=== PATIENT | female | born 1990 | race Caucasian/White ===

== ENCOUNTER 2017-06-01 15:12 | Emergency (ER) | payer OTHER ==
--- NOTE | 2017-06-01 17:38 | EDM.PDOC ---
Scribed by Sana Granado 06/01/17 5731 for Eitan Delatorre MD ED HPI GENERAL MEDICAL PROBLEM - General Chief Complaint: Laceration Stated Complaint: [id number] CUT ON ARM Time Seen by Provider: 06/01/17 16:55 Source of Information: Reports: Patient, RN, RN Notes Reviewed History Limitations: Reports: No Limitations - History of Present Illness INITIAL COMMENTS - FREE TEXT/NARRATIVE: Cut left forearm on hay mower blade. Denies any other injury. Last tetanus vaccine 2 years ago. Onset: Today Location: Reports: Upper Extremity, Left Quality: Reports: Ache Severity: Mild Improves with: Reports: None Worsens with: Reports: None Associated Symptoms: Reports: No Other Symptoms Left Arm Pain Score (Numeric/FACES): 4 - Related Data Allergies Allergy/AdvReac Type Severity Reaction Status Date / Time metronidazole [From Flagyl] Allergy Cannot Verified 06/01/17 17:09 Remember Past Medical History Endocrine/Metabolic History: Reports: Other (See Below) Other Endocrine/Metabolic History: ITP Hematologic History: Reports: Other (See Below) Other Hematologic History: ITP - Past Surgical History GI Surgical History: Reports: Appendectomy, Cholecystectomy Dermatological Surgical History: Reports: Other (See Below) Social & Family History - Family History Family Medical History: Noncontributory - Tobacco Use Smoking Status *Q: Never Smoker Second Hand Smoke Exposure: No - Caffeine Use Caffeine Use: Reports: None - Recreational Drug Use Recreational Drug Use: No ED ROS GENERAL - Review of Systems Review Of Systems: ROS reveals no pertinent complaints other than HPI. ED EXAM, SKIN/RASH Exam: See Below Exam Limited By: No Limitations General Appearance: Alert, WD/WN, No Apparent Distress Respiratory/Chest: No Respiratory Distress Back Exam: Normal Inspection Extremities: Normal Inspection, Normal Range of Motion, Non-Tender, No Pedal Edema, Normal Capillary Refill Neurological: Alert, Oriented, CN II-XII Intact, Normal Cognition, Normal Gait, Normal Reflexes, No Motor/Sensory Deficits Psychiatric: Normal Affect, Normal Mood Skin: Other (4cm vertical linear superficial laceration to left dorsal forearm. ) Course - Vital Signs Last Recorded V/S: Last Vital Signs Temp 37.6 C 06/01/17 15:52 Pulse 104 H 06/01/17 15:52 Resp 18 06/01/17 15:52 BP 103/76 06/01/17 15:52 Pulse Ox 100 06/01/17 15:52 - Re-Assessments/Exams Free Text/Narrative Re-Assessment/Exam: 06/01/17 17:30 Laceration cleaned, Steri-Strips and Dermabond repaired by RN. Departure - Departure Time of Disposition: 17:05 Disposition: Home, Self-Care 01 Condition: Good Clinical Impression: Laceration of left forearm - Discharge Information Instructions: Stitches, Alfred, or Adhesive Wound Closure, [id number] Referrals: PCP,None [Primary Care Provider] - Forms: ED Department Discharge Additional Instructions: Follow up in clinic if any signs of infection develop or any further problems. I have read and agree with the documentation that has been completed regarding this visit. By signing this record, I attest that the documentation was completed in my physical presence and is an accurate record of the encounter.
== END 2017-06-01 17:12 | disposition home or self-care (01) ==
LOC: DL.ED 15:12
CPT/HCPCS: 12002; 99283

== ENCOUNTER 2019-01-16 00:01 | Inpatient (IN) | payer BC ==
[~2019-01-16 00:01] MED LIST: Acetaminophen 325 MG Tab PO PRN; Carboprost Tromethamine 250 MCG/1 ML Amp IM PRN; Lactated Ringers 500 ML IV ONE; Lidocaine 1% 30 ML SDV INJECT PRN; Methylergonovine 0.2 MG/1 ML Amp IM PRN; Misoprostol 400 MCG (4 X 100 MCG TAB) RECTAL PRN; Oxytocin/Normal Saline 30 UNIT/500 ML BAG IV SCH; Sodium Chloride 0.9% 10 ML Syringe FLUSH PRN; Tranexamic Acid 1,000 MG in Sodium Chloride 0.9% 100 ML IV PRN; Zolpidem 5 MG Tab PO PRN; fentaNYL 100 MCG/2 ML SDV IVPUSH PRN
[2019-01-16] MEDS: Misoprostol 25 MCG (1/4 of 100 MCG) Tab VAG PRN ×3 (00:48→09:04)
[2019-01-16] MEDS: Lactated Ringers 1,000 ML IV SCH ×2 (12:50→16:07)
[2019-01-16] MEDS: Ondansetron 4 MG/2 ML SDV IV PRN ×2 (12:55→15:58)
[2019-01-16] MEDS ORDERED: Nalbuphine 10 MG/1 ML Vial IM ONE (14:30)
--- NOTE | 2019-01-16 15:44 | PN ---
DATE: 01/16/2019 TIME: Just about 1510 hours. SUBJECTIVE: The patient having a lot more pain with her labor and requesting intrathecal. She has been given 1 dose of fentanyl 100 mcg and reports that it really did nothing for her pain. Nurse then called at 1410 hours and received an order for a dose of 20 of IM Nubain. The patient reports that has helped some but still not sufficient to allow her to labor without requesting more for pain medications. She has been breathing a little bit heavier, so nurses also provided her with a mask to help focus on more controlled breathing, and oxygen is not currently running in that mask. The patient's mother is concerned about a decrease in baseline heart rate to the 120s from the previous 150s and no ominous findings. OBJECTIVE: Vital Signs: Remains afebrile and she is afebrile. Pelvic: Cervix is now 4 cm dilated, 90% effaced, mid position, and maybe -2 station; and the baby's head has come down significantly from where it was before. Baseline heart rate 120 beats per minute. Moderate [id number]-zo-[id number] variability, currently without accelerations. The Lithium is showing contractions every 2 to 4 minutes, somewhat irregular. The patient is breathing through them. ASSESSMENT: Diagnosis unchanged from previous. PLAN: Encouraging the patient to do her best to relax as much as she can, waiting between contractions to allow her cervix to dilate. Hopefully, she will get to 5 cm dilated soon, and we can proceed with an intrathecal for pain control. Also, discussed with the patient the intrathecal too close to timing of administration of Nubain could make the intrathecal less effective, and she has previously been educated as well that the intrathecal is best if only administered once and a repeat dosing is not necessary. As soon as nurse plans on trying to get positions, changes implemented as well for increased comfort. The patient has been having a lot of back labor, and we are concerned that the baby is currently sitting OP; and hopefully, with position change, baby will also be able to rotate and come down into the canal better. Questions have been answered. [facility] /[id number]
--- NOTE | 2019-01-16 15:51 | PN ---
DATE: 01/16/2019 TIME OF FIRST VISIT: Around 12:40 today. SUBJECTIVE: The patient reports feeling her contractions more. She was in the bathtub just minutes ago and was breathing through them, noticed more passage of mucus plug. No spontaneous leakage of fluid. No vaginal bleeding. movement has been good. OBJECTIVE: Vital Signs: Reviewed. Temperature is 98.4, last blood pressure 110/71, and pulse of 81. Pelvic: heart tones tracing at 150 beats per minute at baseline. Moderate vmkn-lu-guuh variability. Accelerations previously noted. [place] shows contractions every 2 to 3 minutes. Cervix checked and 3 cm dilated, 80% effaced, -3 station, mid position. Discussed with patient the option of artificial rupture of membranes or initiation of Pitocin for further progression of labor. She was agreeable to rupture which was carried out with amniotomy, and return of clear fluid noted at that time. ASSESSMENT: 1. A 39 and 6/7 weeks' intrauterine , 1, para 0. 2. Blood type A positive, rubella nonimmune, group B streptococcus negative. 3. Anemia of . 4. Hemorrhoids. 5. History of idiopathic thrombocytopenic purpura. 6. Inducing labor for concern of macrosomia. PLAN: Continue active labor management. Anticipate starting pitocin. Intrathecal when able. [facility] /[id number] MTDD
[2019-01-16] MEDS ORDERED: fentaNYL 100 MCG/2 ML SDV ONE (16:14)
[2019-01-16] MEDS ORDERED: EPINEPHrine 1 MG/ML SDV ONE (16:14)
[2019-01-16] MEDS ORDERED: Sodium Chloride 0.9% 10 ML Syringe FLUSH PRN (18:04)
[2019-01-16] MEDS ORDERED: Oxytocin 10 Units/1 ML SDV IM PRN (18:04)
[2019-01-16] MEDS ORDERED: Misoprostol 400 MCG (4 X 100 MCG TAB) RECTAL PRN (18:04)
[2019-01-16] MEDS ORDERED: Simethicone 80 MG Tab.Chew PO PRN (18:04)
[2019-01-16] MEDS ORDERED: Carboprost Tromethamine 250 MCG/1 ML Amp IM PRN (18:04)
[2019-01-16] MEDS ORDERED: Tranexamic Acid 1,000 MG in Sodium Chloride 0.9% 100 ML IV PRN (18:04)
[2019-01-16] MEDS ORDERED: Acetaminophen 325 MG Tab PO PRN (18:04)
[2019-01-16] MEDS ORDERED: Benzocaine/Menthol 20%-0.5% Spray 56 GM Canister TOP PRN (18:04)
[2019-01-16] MEDS ORDERED: Ibuprofen 800 MG Tab PO PRN (18:04)
[2019-01-16] MEDS ORDERED: Zolpidem 5 MG Tab PO PRN (18:04)
[2019-01-16] MEDS: Docusate Sodium 100 MG Cap PO PRN (19:17)
[2019-01-17] MEDS ORDERED: Acetaminophen/HYDROcodone 325-5 MG Tab PO PRN (03:25)
[2019-01-17] MEDS: Acetaminophen 500 MG Tab PO PRN ×3 (03:59→16:51)
--- NOTE | 2019-01-17 04:37 | DEL ---
DATE: 01/16/2019 PREPROCEDURE DIAGNOSES: 1. A 36 and 6/7 weeks' intrauterine , 1, para 0. 2. Blood type A positive, rubella nonimmune, group B Streptococcus negative. 3. Anemia of . 4. Hemorrhoids. 5. History of idiopathic thrombocytopenia, approximately 16 years ago. 6. Concern for macrosomia as reason for induction. POSTPROCEDURE DIAGNOSES: 1. A 36 and 6/7 weeks' intrauterine , 1, para 0. 2. Blood type A positive, rubella nonimmune, group B Streptococcus negative. 3. Anemia of . 4. Hemorrhoids. 5. History of idiopathic thrombocytopenia, approximately 16 years ago. 6. Concern for macrosomia as reason for induction. 7. Delivery of viable male infant. 8. Status post spontaneous vaginal delivery. 9. Status post repair of bilateral vaginal sulcus lacerations and second- degree perineal repair. BRIEF HISTORY: A 28-year-old female with the above-listed diagnoses, was brought into the hospital at midnight for Cytotec induction, and once she reached 3 cm dilated and 80% effaced, artificial rupture of membranes was performed with return of clear fluid, and her pain had increased significantly. She was dosed with IV fentanyl and IM Nubain and Pitocin added for augmentation. It was only up to 2 when the patient rapidly transitioned from 3 cm to 7 and then complete prior to being able to receive her intrathecal for pain management. Details of delivery as below. DESCRIPTION OF PROCEDURE: With the patient in dorsal lithotomy position, she delivered a viable male in OA position over intact perineum. was dried, stimulated, bulb suctioned, and placed upon mother's abdomen. After a delay, 3-vessel umbilical cord was doubly clamped and then cut. Perineum then anesthetized and placenta delivered by gentle cord traction and concomitant uterine massage. Prior to the repair of the perineum, there were 2 vaginal sulcus lacerations that were repaired with a running stitch of 3-0 Vicryl in the usual fashion making sure to start above the apex of each laceration and bring that down to the level of the introitus. After that, the second-degree laceration was repaired in usual fashion with a running stitch of 3-0 Vicryl under local anesthetic of 1% lidocaine without epinephrine. The patient tolerated the entire procedure well. Active stage of labor was approximately 3.5 hours, but noting that she did go rapidly from 4 cm to complete in under 1.5 hours, pushed for approximately 40 minutes and placenta was probably about 7 minutes. COMPLICATIONS: None. FINDINGS: Viable male infant. Weight 3755g, 8#4oz. and 8 & 9. ESTIMATED BLOOD LOSS: 450 mL. DISPOSITION: Mother and baby to stay in the room at this time to initiate breast-feeding and continue skin to skin. [facility] /[id number] MTDD
[2019-01-17] MEDS: Prenatal Multivitamin with Calcium/Folic Acid/Iron Tab PO SCH (10:01)
[2019-01-17] MEDS: Docusate Sodium 100 MG Cap PO PRN ×2 (10:01→20:51)
[2019-01-17] MEDS: Ibuprofen 400 MG Tab PO PRN ×2 (12:14→18:42)
--- NOTE | 2019-01-17 13:19 | PN ---
DATE: 01/17/2019 SUBJECTIVE: The patient is day #1 from induction of labor with spontaneous vaginal delivery. She has a significant history of ITP with remission for 16 years, anemia of , hemorrhoids, A positive, rubella nonimmune, and GBS negative. She was induced at 39 weeks 6 days' gestation and was 1, para 0 status, now 1, para 1 status. The patient reports being very sore and tired overnight. She is having some continued cramping, made worse with . She reports minimal bleeding. She is slow to ambulate, but can tolerate walking back and forth to the bathroom. She is urinating well. She endorses lots of pain in the perineal region, likely due to a second-degree repair with 2 vaginal laceration repairs, done after delivery. She does have a right labial hematoma noted today. She is controlling her pain with Extra Strength Tylenol and does not wish to use other medications at this time. She is tolerating a normal diet and passing flatus, but has not yet had a bowel movement. The patient is with no concerns at this time. OBJECTIVE: Vital Signs: Temp is 97.8, HR 107 beats per minute, BP 106/61, RR 16 breaths per minute. General: Alert, cooperative, in mild discomfort due to soreness and pain. HEENT: Grossly normal. Pulmonary: Lungs are clear to auscultation bilaterally, no increased work of breathing. Cardiovascular: Regular rate and rhythm. No murmurs noted. Abdomen: Soft, nontender, nondistended. Uterus is palpated 2 cm below the umbilicus. Extremities: Trace pedal edema noted in ankles bilaterally. No calf tenderness on palpation. Neurologic: No focal neurologic deficits noted. : 2x4 cm right posterior labial hematoma that is not firm and does not extend up into the vagina. RECENT LABORATORY RESULTS: Hematology: WBC 12.9, up from 10.8 on admission; RBC 3.61, down from 3.88 on admission; hemoglobin 11.3, down from 12.4 on admission; hematocrit 33.7, down from 36.1 on admission; platelet count 195, down from 199 on admission. ASSESSMENT: 1. day #1 from spontaneous vaginal delivery. 2. . 3. Right labial hematoma. PLAN: Continue routine cares. Continue pain management as needed. Anticipating discharge from hospital tomorrow. The patient is in agreement with plan and has no other questions or concerns at this time. The patient was seen and assessed today by myself and Dr. Kacy Jay. Assessment and plan are under advisement of Dr. Jay. Patient seen and examined. Agree with note as scribed on my behalf by Ekaterina Hernandez, MS3. -brickmason contractor 01/17/19 2211. [facility] /[id number] MTDD
[2019-01-18] MEDS: Ibuprofen 400 MG Tab PO PRN ×2 (02:38→08:16)
[2019-01-18] MEDS: Acetaminophen 500 MG Tab PO PRN ×2 (02:38→08:15)
[2019-01-18] MEDS: Prenatal Multivitamin with Calcium/Folic Acid/Iron Tab PO SCH (08:16)
[2019-01-18] MEDS: Docusate Sodium 100 MG Cap PO PRN (08:16)
[2019-01-18 09:00] VITALS: BP 83/50
--- NOTE | 2019-01-18 13:27 | DISCH ---
HISTORY: This patient is a 28-year-old, 1, now para [address] Jay has asked me to discharge today. Dr. Jay has thoroughly discussed the patient with me earlier this morning. The patient was at 39 weeks 6 days' gestation and did have artificial rupture of membranes on 01/16/2019. Her course reveals a history of anemia of as well as hemorrhoids, and approximately 16 years ago, she did have history of ITP. Please see Dr. Jay's admission history and physical and delivery note. The patient did proceed on to have a spontaneous vaginal delivery of a viable male on 01/16/2019. This baby boy weighed 8 pounds 4 ounces and had scores of 8 and 9. The patient did sustain a second degree perineal laceration which was repaired; and also, she did have a right labial hematoma, that hematoma was thought to be approximately 2 x 5 cm, and it has remained stable. She has been using ice packs, mild compression, and oral analgesics in the form of ibuprofen and Tylenol for her vulvar and vaginal discomfort. The patient has been , and although her nipples have been somewhat sore, there have been no signs of infection. She will continue to use her lanolin nipple cream at this time. consultation has taken place I understand. On rounds this morning, 01/18/2019, her right vulvar hematoma is carefully inspected again and found to be stable. Her lochia flow is within normal limits. The fundus is firm. Her extremities are negative including negative Orlin sign bilaterally. Her vital signs have remained stable. She will be discharged home today. We did instruct her to please keep us informed if any excess pain, excess bleeding, or any problems with her hematoma or perineal sutures. She will continue ice as well as sitz baths at home for her hematoma. She was also instructed to contact us if any fever or any questions or problems, whatsoever. We did emphasize the importance of healthy well-balanced nutrition, nutritional measures, as well as adequate hydration to her. She will do gradual progressive ambulation at home. As mentioned above, she will call us at once if any questions or problems, whatsoever. DISCHARGE MEDICATIONS: Consist of cautious usage of ibuprofen interspersed with Extra Strength Tylenol as directed. She also will use her nipple cream as well as stool softener in the form of Colace 100 mg p.o. b.i.d. p.r.n. FOLLOWUP APPOINTMENT: Her baby boy who is doing well will be seen on Tuesday in the clinic by Dr. Alexander. The patient and her baby boy will also be seen in the clinic this coming week on Tuesday by Dr. Jay. It should be mentioned that the patient will take her vitamins at home also, as well as she will continue the iron sulfate or oral iron that she has at home as well. She will also increase her fiber or roughage intake while on iron. FINAL DIAGNOSES: 1. at 39 weeks 6 days' gestation, delivered. 2. Group B streptococcus negative. 3. Anemia of . 4. Hemorrhoids. 5. Past history of idiopathic thrombocytopenic purpura 16 years ago. 6. Right labial hematoma. OPERATIONS AND PROCEDURES: Spontaneous vaginal delivery with repair of second degree perineal laceration as well as right labial hematoma. [facility] /[id number]
== END 2019-01-18 13:15 | disposition home or self-care (01) | DRG 560 ==
LOC: DL.OBCHECK 00:01 → DL.OB 00:02 → OBSVTOIN 16:52
PROVIDERS: ADMIT Family Medicine; ATTEND Family Medicine
PROC: 10E0XZZ Delivery of Products of Conception, External Approach (ICD-10-PCS; principal; 2019-01-16)
PROC: 0KQM0ZZ Repair Perineum Muscle, Open Approach (ICD-10-PCS; 2019-01-16)
PROC: 10907ZC Drainage of Amniotic Fluid, Therapeutic from Products of Conception, Via Natural or Artificial Opening (ICD-10-PCS; 2019-01-16)
PROC: 3E0P7VZ Introduction of Hormone into Female Reproductive, Via Natural or Artificial Opening (ICD-10-PCS; 2019-01-16)
PROC: 4A1HXCZ Monitoring of Products of Conception, Cardiac Rate, External Approach (ICD-10-PCS; 2019-01-16)
DX: O36.63X0 Maternal care for excessive fetal growth, third trimester, not applicable or unspecified (principal); O99.02 Anemia complicating childbirth; O70.1 Second degree perineal laceration during delivery; O71.7 Obstetric hematoma of pelvis; Z3A.39 39 weeks gestation of pregnancy; Z37.0 Single live birth; Z88.8 Allergy status to other drugs, medicaments and biological substances; Z23 Encounter for immunization
CPT/HCPCS: 36415; 59025; 59409; 85027; A9270-GY; J2001; J2300; J2405; J2590; J3010; J7120

== ENCOUNTER 2022-08-10 00:08 | Inpatient (IN) | payer BC ==
[~2022-08-10 00:08] MED LIST changes: -Acetaminophen 325 MG Tab PO PRN; +Lactated Ringers 1,000 ML IV ONE; -Lactated Ringers 500 ML IV ONE; +Lactated Ringers 500 ML IV SCH; +Nalbuphine 20 MG/1 ML Amp IM PRN; +Naloxone 2 MG/2 ML Syringe IVPUSH PRN; +Ondansetron 4 MG/2 ML SDV IVPUSH PRN; -Oxytocin/Normal Saline 30 UNIT/500 ML BAG IV SCH; +Promethazine 25 MG/ML SDV IM PRN; -Zolpidem 5 MG Tab PO PRN; +ePHEDrine 50 MG/ML SDV IVPUSH PRN
[2022-08-10] MEDS: Lactated Ringers 1,000 ML IV SCH ×4 (01:00→15:58)
[2022-08-10] MEDS: Oxytocin/Normal Saline 30 UNIT/500 ML BAG IV SCH ×2 (01:00→19:29)
[2022-08-10] MEDS: Sodium Chloride 0.9% 10 ML Syringe FLUSH SCH ×3 (01:15→22:17)
[2022-08-10] MEDS ORDERED: fentaNYL 100 MCG/2 ML SDV IVPUSH PRN (08:00)
[2022-08-10] MEDS ORDERED: Nalbuphine 20 MG/1 ML Amp IM PRN (08:00)
[2022-08-10] MEDS ORDERED: Sodium Chloride 0.9% 10 ML Syringe FLUSH SCH (08:00)
[2022-08-10] MEDS ORDERED: Misoprostol 400 MCG (4 X 100 MCG TAB) RECTAL PRN (08:00)
[2022-08-10] MEDS ORDERED: ePHEDrine 50 MG/ML SDV IVPUSH PRN (08:00)
[2022-08-10] MEDS ORDERED: Acetaminophen 325 MG Tab PO PRN ×2 (08:00)
[2022-08-10] MEDS ORDERED: Ondansetron 4 MG/2 ML SDV IVPUSH PRN ×2 (08:00)
[2022-08-10] MEDS ORDERED: Methylergonovine 0.2 MG/1 ML Amp IM PRN (08:00)
[2022-08-10] MEDS ORDERED: Lactated Ringers 500 ML IV SCH (08:00)
[2022-08-10] MEDS ORDERED: Lidocaine 1% 30 ML SDV INJECT PRN (08:00)
[2022-08-10] MEDS ORDERED: Oxytocin/Normal Saline 30 UNIT/500 ML BAG IV SCH (08:00)
[2022-08-10] MEDS ORDERED: Lactated Ringers 1,000 ML IV SCH (08:00)
[2022-08-10] MEDS ORDERED: Carboprost Tromethamine 250 MCG/1 ML Amp IM PRN (08:00)
[2022-08-10] MEDS ORDERED: Naloxone 2 MG/2 ML Syringe IVPUSH PRN (08:00)
[2022-08-10] MEDS ORDERED: Tranexamic Acid 1,000 MG in Sodium Chloride 0.9% 100 ML IV PRN (08:00)
[2022-08-10] MEDS ORDERED: Sodium Chloride 0.9% 10 ML Syringe FLUSH PRN (08:00)
[2022-08-10] MEDS ORDERED: Promethazine 25 MG/ML SDV IM PRN (08:00)
[2022-08-10] MEDS ORDERED: fentaNYL 100 MCG/2 ML SDV ITHECAL ONE (14:20)
[2022-08-10] MEDS ORDERED: EPINEPHrine 1 MG/ML SDV ONE ×2 (14:20→14:22)
[2022-08-10] MEDS ORDERED: fentaNYL 100 MCG/2 ML SDV ONE (14:20)
[2022-08-10] MEDS ORDERED: Sodium Bicarbonate 4.2% 2.5 MEQ/5 ML SDV ONE ×2 (14:20→14:23)
[2022-08-10] MEDS ORDERED: Sodium Chloride 0.9% 20 ML SDV ONE (14:20)
[2022-08-10] MEDS: Docusate Sodium 100 MG Cap PO PRN (21:12)
[2022-08-10] MEDS: Ibuprofen 800 MG Tab PO PRN (21:12)
[2022-08-10] MEDS ORDERED: Benzocaine/Menthol 20%-0.5% Spray 78 GM Cannister TOP PRN (21:13)
[2022-08-10] MEDS: Acetaminophen 325 MG Tab PO PRN (23:36)
[2022-08-11] MEDS: Ibuprofen 800 MG Tab PO PRN ×2 (04:45→14:43)
[2022-08-11] MEDS: Acetaminophen 325 MG Tab PO PRN (08:23)
[2022-08-11] MEDS: Docusate Sodium 100 MG Cap PO PRN (08:25)
[2022-08-11 10:00] VITALS: BP 99/60; PULSE 103
== END 2022-08-11 19:24 | disposition home or self-care (01) | DRG 560 ==
LOC: DL.OB 00:08 → OBSVTOIN 17:57
PROVIDERS: ADMIT Family Medicine; ATTEND Family Medicine
PROC: 10E0XZZ Delivery of Products of Conception, External Approach (ICD-10-PCS; principal; 2022-08-10)
PROC: 10907ZC Drainage of Amniotic Fluid, Therapeutic from Products of Conception, Via Natural or Artificial Opening (ICD-10-PCS; 2022-08-10)
PROC: 0HQ9XZZ Repair Perineum Skin, External Approach (ICD-10-PCS; 2022-08-10)
PROC: 10H07YZ Insertion of Other Device into Products of Conception, Via Natural or Artificial Opening (ICD-10-PCS; 2022-08-10)
DX: O99.02 Anemia complicating childbirth (principal); Z3A.39 39 weeks gestation of pregnancy; Z37.0 Single live birth; O99.52 Diseases of the respiratory system complicating childbirth; D64.9 Anemia, unspecified; O99.284 Endocrine, nutritional and metabolic diseases complicating childbirth; E03.9 Hypothyroidism, unspecified; O99.344 Other mental disorders complicating childbirth; O70.0 First degree perineal laceration during delivery; F41.9 Anxiety disorder, unspecified; J45.909 Unspecified asthma, uncomplicated; Z86.16 Personal history of COVID-19
CPT/HCPCS: 01967; 36415; 59409; 85027; A9270-GY; J0171; J2405; J2550; J2590; J3010; J7120